=== PATIENT | female | born 1970 | race African-American/Black ===

== ENCOUNTER 2020-11-28 21:21 | Emergency (ER) | payer SELFPAY ==
[~2020-11-28] VITALS: Ht 170.2 cm; Wt 94.8 kg
[2020-11-28 22:29] VITALS: BP 141/70
== END 2020-11-28 23:50 | disposition home or self-care (01) ==
LOC: ER 21:25
DX: N81.4 Uterovaginal prolapse, unspecified (principal); F17.210 Nicotine dependence, cigarettes, uncomplicated
CPT/HCPCS: 72170